=== PATIENT | female | born 1990 | race Caucasian/White ===

== ENCOUNTER 2022-04-27 01:24 | Inpatient (IN) | payer MEDICAID ==
[~2022-04-27] VITALS: Ht 157.5 cm; Wt 68.0 kg
[2022-04-27] MEDS ORDERED: CARBOPROST TROMETHAMINE 250 MCG/ML AMPUL IM PRN (02:45)
[2022-04-27] MEDS ORDERED: LACTATED RINGERS 1,000 ML IV SCH (02:45)
[2022-04-27] MEDS ORDERED: BUTORPHANOL TARTRATE 2 MG/ML VIAL IV PRN (02:45)
[2022-04-27] MEDS ORDERED: MISOPROSTOL 100MCG TABLET VG SCH (02:45)
[2022-04-27] MEDS ORDERED: NALOXONE HCL 0.4 MG/ML 1ML VIAL IM PRN (02:45)
[2022-04-27] MEDS ORDERED: LIDOCAINE HCL 1% 20ML VIAL (Pyxis) INJ INFIL SCH (02:45)
[2022-04-27] MEDS ORDERED: METHYLERGONOVINE MALEATE 0.2 MG/ML IM PRN ×3 (02:45→09:30)
[2022-04-27] MEDS ORDERED: OXYTOCIN 30 UNITS/500ML NS PMX 500 ML IV SCH ×3 (02:45→09:30)
[2022-04-27] MEDS ORDERED: PENICILLIN G POTASSIUM 5 MMU in DEXT 5% WATER 100 ML IV SCH (03:00)
[2022-04-27 04:09] LABS: INR 0.9; PARTIAL THROMBOPLASTIN TIME 24.5 sec (23.4-31.0); PROTHROMBIN TIME 9.4 sec (9.6-11.0)
[2022-04-27 04:31] LABS: BASOPHILS % 0.3 % (0.0-2.0); EOSINOPHILS % 0.5 % (0.0-5.0); HEMATOCRIT. 35.5 % (36.0-48.0); HEMOGLOBIN. 11.4 g/dL (12.0-16.0); LYMPHOCYTES % 32.1 % (20.0-50.0); MEAN CORPUSCULAR HEMOGLOBIN 24.1 pg (28.0-32.0); MEAN CORPUSCULAR VOLUME 75.1 fL (81.0-99.0); MEAN PLATELET VOLUME 12.2 fl (7.4-10.4); MONOCYTES % 6.8 % (2.0-8.0); NEUTROPHILS % 60.3 % (40.0-76.0); PLATELET 160 x1000/uL (130-400); RED BLOOD CELL COUNT 4.73 mill/uL (4.2-5.4); RED CELL DISTRIBUTION WIDTH 17.7 % (11.6-14.6)
[2022-04-27 04:33] LABS: HEPATITIS B SURFACE ANTIGEN NEGATIVE
[2022-04-27] MEDS ORDERED: BENZOCAINE/LANOLIN/ALOE VERA SPRAY TOP PRN (04:45)
[2022-04-27] MEDS ORDERED: GLYCERIN/WITCH HAZEL LEAF MEDICATED PAD TOP PRN (04:45)
[2022-04-27] MEDS ORDERED: BISACODYL 10MG SUPP PR PRN ×2 (04:45→09:30)
[2022-04-27] MEDS: IBUPROFEN 800MG TABLET PO PRN ×2 (05:24→21:20)
[2022-04-27 06:23] VITALS: BP 109/62
[2022-04-27] MEDS ORDERED: PENICILLIN G POTASSIUM 2.5 MMU in DEXTROSE 5% WATER 50 ML IV SCH (07:30)
[2022-04-27 08:00] VITALS: BP 114/70
[2022-04-27] MEDS ORDERED: DIPHENHYDRAMINE 25MG CAPSULE PO PRN (09:30)
[2022-04-27] MEDS ORDERED: LANOLIN OINT 7GM TUBE TOP PRN (09:30)
[2022-04-27] MEDS ORDERED: RHO(D) IMMUNE GLOBULIN 300 MCG/SYR IM PRN (09:30)
[2022-04-27] MEDS ORDERED: IBUPROFEN 800MG TABLET PO PRN (09:30)
[2022-04-27] MEDS ORDERED: IBUPROFEN 400MG TABLET PO PRN (09:30)
[2022-04-27 11:40] LABS: CLARITY URINE CLEAR (CLEAR); COLOR URINE DARK YELLOW (YELLOW); KETONES URINE NEGATIVE (NEGATIVE); LEUKOCYTE ESTERASE URINE TRACE (NEGATIVE); NITRITE URINE NEGATIVE (NEGATIVE); OCCULT BLOOD URINE 3+ (NEGATIVE); PROTEIN URINE TRACE (NEGATIVE); SPECIFIC GRAVITY URINE 1.017 (1.005-1.030)
[2022-04-27 12:11] LABS: *AMPHETAMINES SCREEN URINE NEGATIVE (NEGATIVE); *BARBITURATES SCREEN URINE NEGATIVE (NEGATIVE); *BENZODIAZEPINES SCREEN URINE NEGATIVE (NEGATIVE); *COCAINE SCREEN URINE NEGATIVE (NEGATIVE); CANNABINOID URINE SCREEN NEGATIVE (NEGATIVE); METHADONE URINE SCREEN NEGATIVE (NEGATIVE); OPIATES URINE SCREEN NEGATIVE (NEGATIVE); PHENCYCLIDINE URINE SCREEN NEGATIVE (NEGATIVE)
[2022-04-27 15:44] VITALS: BP 112/68
[2022-04-27 20:00] VITALS: BP 101/65
[2022-04-27] MEDS ORDERED: DOCUSATE SODIUM 100MG CAPSULE PO SCH (21:00)
[2022-04-27] MEDS: DOCUSATE SODIUM 100MG CAPSULE PO SCH (21:19)
[2022-04-28 04:00] VITALS: BP 98/60
[2022-04-28 07:15] LABS: BASOPHILS % 0.3 % (0.0-2.0); EOSINOPHILS % 0.3 % (0.0-5.0); HEMATOCRIT. 34.2 % (36.0-48.0); HEMOGLOBIN. 10.9 g/dL (12.0-16.0); LYMPHOCYTES % 18.1 % (20.0-50.0); MEAN CORPUSCULAR HEMOGLOBIN 23.8 pg (28.0-32.0); MEAN CORPUSCULAR VOLUME 74.9 fL (81.0-99.0); MEAN PLATELET VOLUME 11.3 fl (7.4-10.4); MONOCYTES % 6.7 % (2.0-8.0); NEUTROPHILS % 74.6 % (40.0-76.0); PLATELET 165 x1000/uL (130-400); RED BLOOD CELL COUNT 4.57 mill/uL (4.2-5.4); RED CELL DISTRIBUTION WIDTH 17.5 % (11.6-14.6)
[2022-04-28 08:20] VITALS: BP 99/69
[2022-04-28] MEDS ORDERED: PRENATAL VIT/FE FUMARATE/FA TABLET PO SCH (09:00)
[2022-04-28] MEDS: FERROUS SULFATE 325MG TABLET PO SCH (10:08)
[2022-04-28] MEDS: PRENATAL VIT/FE FUMARATE/FA TABLET PO SCH (10:08)
[2022-04-28] MEDS: IBUPROFEN 800MG TABLET PO PRN (10:08)
[2022-04-28 16:00] VITALS: BP 98/66
[2022-04-28 20:00] VITALS: BP 101/64
[2022-04-28] MEDS: DOCUSATE SODIUM 100MG CAPSULE PO SCH (20:52)
[2022-04-29 03:30] VITALS: BP 94/58
[2022-04-29 07:30] VITALS: BP 103/70
[2022-04-29] MEDS: FERROUS SULFATE 325MG TABLET PO SCH ×2 (07:40→13:46)
[2022-04-29] MEDS: PRENATAL VIT/FE FUMARATE/FA TABLET PO SCH (07:40)
[2022-04-29] MEDS: IBUPROFEN 800MG TABLET PO PRN ×2 (07:40→13:46)
[2022-04-29 16:00] VITALS: BP 108/78
== END 2022-04-29 17:50 | disposition home or self-care (01) | DRG 560 ==
LOC: 8 EST LDRP 01:24 → OBSVTOIN 01:24 → 8EST 07:18
PROVIDERS: ADMIT Obstetrics & Gynecology; ATTEND Obstetrics & Gynecology
PROC: 10E0XZZ Delivery of Products of Conception, External Approach (ICD-10-PCS; principal; 2022-04-27)
DX: O42.913 Preterm premature rupture of membranes, unspecified as to length of time between rupture and onset of labor, third trimester (principal); Z37.0 Single live birth; O60.14X0 Preterm labor third trimester with preterm delivery third trimester, not applicable or unspecified; D62 Acute posthemorrhagic anemia; O99.12 Other diseases of the blood and blood-forming organs and certain disorders involving the immune mechanism complicating childbirth; O69.81X0 Labor and delivery complicated by cord around neck, without compression, not applicable or unspecified; O77.0 Labor and delivery complicated by meconium in amniotic fluid; Z3A.36 36 weeks gestation of pregnancy; Z20.822 Contact with and (suspected) exposure to COVID-19; O99.02 Anemia complicating childbirth; D72.829 Elevated white blood cell count, unspecified
CPT/HCPCS: 36415; 80305; 81003; 85025; 86592; 86703; 86762; 86850; 86900; 87340; 87426; 99281; J2540; J3490; J7060; J7120; J2590